=== PATIENT | male | born 1950 | race Caucasian/White ===

== ENCOUNTER 2018-03-10 10:28 | Day surgery (SDC) | payer MEDICARE ==
[~2018-03-10 10:28] MED LIST: KETOROLAC TROMETHAMINE 0.45% 4 DROP/0.4 ML DROPERETTE OD PRN; LIDOCAINE 1% INJ-PF (10 MG/ML) 30 ML SDV ONE
[2018-03-10] MEDS ORDERED: MIDAZOLAM 2 MG/2 ML INJ ONE (10:29)
[2018-03-10] MEDS: CYCLOPENTOLATE 0.2%/PHENYLEPHRINE 1% OPH SOLN 2 ML OD PRN ×3 (10:59→11:19)
[2018-03-10] MEDS: TROPICAMIDE 1% OPH SOLN 3 ML OD PRN ×3 (10:59→11:19)
[2018-03-10] MEDS: TETRACAINE HCL 0.5% OPH SOLN 0.6 ML DROPERETTE OD PRN ×3 (11:00→11:36)
[2018-03-10] MEDS: BESIFLOXACIN HCL 0.6% OPH SUSP 5 ML BOTTLE OD PRN ×4 (11:00→12:03)
[2018-03-10] MEDS: EPINEPHRINE INJ/PF 1 MG/1 ML AMPULE ONE ×2 (11:52)
[2018-03-10] MEDS: LIDOCAINE 1%/PHENYLEPHRINE 1.5% 1 ML VIAL ONE ×2 (11:53)
[2018-03-10] MEDS: CHONDR SU A NA/HYALUR INTRAOC KIT (SURGICARE) ONE ×2 (11:55)
[2018-03-10] MEDS: TOBRAMYCIN SULFATE/DEXAMETH OPH OINTMENT 3.5 GM ONE ×2 (12:03)
== END 2018-03-10 12:39 | disposition home or self-care (01) ==
LOC: SC 10:28
PROVIDERS: ATTEND Ophthalmology
DX: H25.11 Age-related nuclear cataract, right eye (principal); F17.210 Nicotine dependence, cigarettes, uncomplicated
CPT/HCPCS: 66984; V2630; J2250; J3490 ×2; A9270; J0171; J2370; 142

== ENCOUNTER 2018-03-24 08:42 | Day surgery (SDC) | payer MEDICARE ==
[~2018-03-24 08:42] MED LIST changes: -KETOROLAC TROMETHAMINE 0.45% 4 DROP/0.4 ML DROPERETTE OD PRN; +KETOROLAC TROMETHAMINE 0.45% 4 DROP/0.4 ML DROPERETTE OS PRN; -LIDOCAINE 1% INJ-PF (10 MG/ML) 30 ML SDV ONE
[2018-03-24] MEDS: CYCLOPENTOLATE 0.2%/PHENYLEPHRINE 1% OPH SOLN 2 ML OS PRN ×3 (09:13→09:33)
[2018-03-24] MEDS: BESIFLOXACIN HCL 0.6% OPH SUSP 5 ML BOTTLE OS PRN ×4 (09:13→10:14)
[2018-03-24] MEDS: TROPICAMIDE 1% OPH SOLN 3 ML OS PRN ×3 (09:13→09:33)
[2018-03-24] MEDS: TETRACAINE HCL 0.5% OPH SOLN 0.6 ML DROPERETTE OS PRN ×4 (09:14→09:52)
[2018-03-24] MEDS ORDERED: MIDAZOLAM 2 MG/2 ML INJ ONE ×2 (09:37→09:40)
[2018-03-24] MEDS: CHONDR SU A NA/HYALUR INTRAOC KIT (SURGICARE) ONE ×2 (10:03)
[2018-03-24] MEDS: LIDOCAINE 1% INJ-PF (10 MG/ML) 30 ML SDV ONE ×2 (10:03)
[2018-03-24] MEDS: EPINEPHRINE INJ/PF 1 MG/1 ML AMPULE ONE ×2 (10:03)
[2018-03-24] MEDS: TOBRAMYCIN SULFATE/DEXAMETH OPH OINTMENT 3.5 GM ONE ×2 (10:14)
== END 2018-03-24 10:46 | disposition home or self-care (01) ==
LOC: SC 08:42
PROVIDERS: ATTEND Ophthalmology
DX: H25.12 Age-related nuclear cataract, left eye (principal); Z98.41 Cataract extraction status, right eye; F17.210 Nicotine dependence, cigarettes, uncomplicated
CPT/HCPCS: 66984; V2630; J2250; J3490 ×3; A9270; J0171; 142